=== PATIENT | male | born 1980 | race Two or more races ===

== ENCOUNTER 2017-10-31 16:32 | Emergency (ER) | payer OTHER ==
[~2017-10-31] VITALS: Ht 182.9 cm; Wt 97.5 kg
== END 2017-10-31 18:54 | disposition home or self-care (01) ==
LOC: ER 16:32
DX: J09.X2 Influenza due to identified novel influenza A virus with other respiratory manifestations (principal)

== ENCOUNTER 2021-08-11 10:50 | Emergency (ER) | payer OTHER ==
[~2021-08-11] VITALS: Ht 182.9 cm; Wt 95.3 kg
[2021-08-11] MEDS ORDERED: LEVALBUTER1.25 MG/0. IH (18:20)
[2021-08-11] MEDS ORDERED: ZITHROMAX500 MG PO (18:20)
[2021-08-11] MEDS ORDERED: MEDROLPACK PO (18:20)
[2021-08-11] MEDS ORDERED: DOLOGEN 325-11 EACH PO (18:20)
== END 2021-08-11 18:55 | disposition home or self-care (01) ==
LOC: ER 10:50
DX: J06.9 Acute upper respiratory infection, unspecified (principal); E86.0 Dehydration; Z20.822 Contact with and (suspected) exposure to COVID-19